=== PATIENT | male | born 1970 | race Caucasian/White ===

== ENCOUNTER 2022-11-06 02:53 | Day surgery (SDC) | payer OTHER, SELFPAY ==
[2022-10-28 13:32] VITALS: BMI 33.0
[2022-11-06 12:35] VITALS: BP 126/85; PULSE 87; RESP 16; TEMP 36.2; O2SAT 97
[2022-11-06] MEDS: LACTATED RINGERS 1,000 ML 150 ML IV CONT (12:53)
--- NOTE | 2022-11-06 13:06 | WPDANESEPPF ---
Anes - Initial Pre Proc Eval Procedure: Operation Date: 11/06/22 13:30 Proposed Procedures p Screening Colonoscopy - Calin Saucedo MD Date/Time: 11/06/22 13:06 Surgeon: Calin Saucedo MD Pre Op Diagnosis: neoplasm screening Patient Data Age: 52 Gender: M Height: 1.7 m Weight: 97.2 kg Last Vital Signs Temp 97.2 F L 11/06/22 12:35 Pulse 87 11/06/22 12:35 Resp 16 11/06/22 12:35 BP 126/85 11/06/22 12:35 Pulse Ox 97 11/06/22 12:35 O2 Del Method Room Air 11/06/22 12:35 Allergies Allergy/AdvReac Type Severity Reaction Status Date / Time No Known Allergies Allergy Verified 11/06/22 12:34 Home Medications Medication Instructions Recorded Confirmed Type No Home Medications 10/28/22 10/28/22 History Patient hx anesthesia problems: none Family hx anesthesia problems: none Results Review: All pre-operative results and documents have been reviewed as part of the pre-operative evaluation. [facility] Past Medical History Medical History (Updated 09/28/22 @ 16:37 by Rick Moore MD) Anxiety BMI 33.0-33.9,adult BMI 35.0-35.9,adult Groin pain Hypothyroidism Microalbuminuria due to type 2 diabetes mellitus Mixed hyperlipidemia Screening PSA (prostate specific antigen) Type 2 diabetes mellitus without complications Family History Family History Other Diabetes mellitus Family history of coronary artery disease Family history of lung cancer Hypertension Social History Social History Smoking packs per day: 0.5 Smoking cigarettes per day: 10.0 Years smoked: 9 Smoking pack-years: 4.50 Smoking status: Current some day smoker Tobacco type: cigarettes Alcohol intake: current Alcohol use details: 2 drinks monthly Substance use: current Substance use type: marijuana Lack of Transportation: No Lack of Food: Never True Current Housing: I Have Housing Concerned About Future Housing: No Difficulty Paying Gas/Electric Bills: No Difficulty Paying for Meds: No Education: Master's Degree or Higher Difficulty w/ Childcare or Family Care: No Living arrangements: with family Spiritual care concerns: No Anes - Eval Final PreProcedure Day of Procedure 11/06/22 13:06 Patient weight: obese Heart: regular rate and rhythm Lungs: clear to auscultation Airway: Mallampati scale class II Neurological: alert and oriented Last oral intake: >/= 8 hours ASA classification: III Emergent: no Anesthetic plan: proceed Anesthesia type and monitoring: general GIVS and standard monitoring Results Review: All pre-operative results and documents have been reviewed as part of the pre-operative evaluation. Informed Consent: The patient's anesthetic plan and its attendant risks and benefits were discussed with the patient/family/POA. Questions were solicited and answers provided to the satisfaction of the patient/family/POA.
--- NOTE | 2022-11-06 13:19 | PM.HPGS ---
History of Present Illness History of Present Illness Consent: Risks, benefits, and alternatives have been discussed and questions answered. Patient agrees to proceed with procedure. Chief complaint: neoplasm screening Narrative: Nicanor Mock is a 52 year old male here for first screening colonoscopy Review of Systems Constitutional: Constitutional: Denies headache(s) and Denies weakness Eyes: Eyes: Denies blurry vision ENT: Reports Normal hearing present, Denies headache(s) and Denies neck pain Cardiovascular: Cardiovascular: Denies chest pain and Denies dyspnea Respiratory: Respiratory: Denies dyspnea Gastrointestinal: Gastrointestinal: Reports no additional gastrointestinal complaints Genitourinary: Genitourinary: Denies dysuria Musculoskeletal: Musculoskeletal: Denies neck pain Integumentary/Breasts: Skin/Breast: Denies dry skin Neurologic: Reports Normal hearing present, Denies headache(s) and Denies weakness Psychiatric: Psychiatric: Denies anxiety Endocrine: Endocrine: Denies change in body appearance Hematologic/Lymphatic: Hematologic/Lymphatic: Denies easy bleeding Allergic/Immunologic: Allergic/Immunologic: Denies urticaria PMF Past Medical History Medical History (Updated 11/06/22 @ 13:19 by Calin Saucedo MD) Anxiety BMI 33.0-33.9,adult BMI 35.0-35.9,adult Colon cancer screening Groin pain Hypothyroidism Microalbuminuria due to type 2 diabetes mellitus Mixed hyperlipidemia Screening PSA (prostate specific antigen) Type 2 diabetes mellitus without complications Family History Family History Other Diabetes mellitus Family history of coronary artery disease Family history of lung cancer Hypertension Social History Social History Smoking packs per day: 0.5 Smoking cigarettes per day: 10.0 Years smoked: 9 Smoking pack-years: 4.50 Smoking status: Current some day smoker Tobacco type: cigarettes Alcohol intake: current Alcohol use details: 2 drinks monthly Substance use: current Substance use type: marijuana Lack of Transportation: No Lack of Food: Never True Current Housing: I Have Housing Concerned About Future Housing: No Difficulty Paying Gas/Electric Bills: No Difficulty Paying for Meds: No Education: Master's Degree or Higher Difficulty w/ Childcare or Family Care: No Living arrangements: with family Spiritual care concerns: No Meds Home Medications and Allergies Home Medications Medication Instructions Recorded Confirmed Type No Home Medications 10/28/22 10/28/22 History Allergies Allergy/AdvReac Type Severity Reaction Status Date / Time No Known Allergies Allergy Verified 11/06/22 12:34 Vital Signs Vital Signs - 24 hr 11/06/22 12:35 Temperature 97.2 F L Pulse Rate 87 Respiratory Rate 16 Blood Pressure 126/85 Pulse Oximetry 97 Oxygen Delivery Room Air Exam Const: General: comfortable and no acute distress HENMT: Face/Nose/Sinus: Normal nares present Eyes: General: appearance normal, both eyes and all related structures Neck: Neck: no JVD Resp: Auscultation: clear to auscultation bilaterally Cardio: Rate: regular rate Rhythm: regular rhythm GI: Inspection: non-distended GI Palp: Yes Soft to palpation Skin: General skin exam: normal color Neuro: General: gait normal Speech: normal speech Extrem: General: normal to inspection Psych: Mental Status: mental status grossly normal Assessment and Plan Assessment and plan (1) Colon cancer screening: Code(s): Z12.11 - Encounter for screening for malignant neoplasm of colon Status: Acute Assessment and Plan: colonoscopy
[2022-11-06 13:41] VITALS: BP 108/81; PULSE 78; RESP 19; O2SAT 98
[2022-11-06 13:51] VITALS: BP 125/81; PULSE 86; RESP 24; O2SAT 100
[2022-11-06 14:01] VITALS: BP 129/84; PULSE 70; RESP 17; O2SAT 100
== END 2022-11-06 14:09 | disposition home or self-care (01) ==
PROVIDERS: PCP Family Medicine; Visit Provider Internal Medicine Gastroenterology
PROC: 0DJD8ZZ Inspection of Lower Intestinal Tract, Via Natural or Artificial Opening Endoscopic (ICD-10-PCS; CPT 45378; principal; 2022-11-06 13:30)
DX: Z12.11 Encounter for screening for malignant neoplasm of colon (principal); D12.0 Benign neoplasm of cecum; K57.30 Diverticulosis of large intestine without perforation or abscess without bleeding; K64.8 Other hemorrhoids; F17.210 Nicotine dependence, cigarettes, uncomplicated; F12.90 Cannabis use, unspecified, uncomplicated; E66.9 Obesity, unspecified; Z68.33 Body mass index [BMI] 33.0-33.9, adult
CPT/HCPCS: 45385; 88305; J2704; J7120